=== PATIENT | female | born 1955 | race Two or more races ===

== ENCOUNTER 2017-05-20 07:53 | Outpatient (CLI) | payer OTHER | END 2017-05-20 08:04 | disposition home or self-care (01) | LOC: NUCLEAR 07:53 | DX: I20.0 Unstable angina (principal); E11.9 Type 2 diabetes mellitus without complications; E78.2 Mixed hyperlipidemia | CPT/HCPCS: A9500; 93017; 78452 ==

== ENCOUNTER 2021-03-12 08:35 | Outpatient (CLI) | payer OTHER | END 2021-03-12 08:40 | disposition home or self-care (01) | LOC: NUCLEAR 08:35 | PROVIDERS: ATTEND Internal Medicine Pulmonary Disease | DX: R91.1 Solitary pulmonary nodule (principal); E66.01 Morbid (severe) obesity due to excess calories | CPT/HCPCS: 78815; A9552 ==